=== PATIENT | female | born 1990 | race African-American/Black ===

== ENCOUNTER 2021-02-12 00:44 | Inpatient (IN) ==
[2021-02-12 06:59] LABS: Hematocrit 35 % (35-47); Hemoglobin 11.2 g/dL (12.0-16.0); Mean Corpuscular HGB Conc 33 g/dL (31-36); Mean Corpuscular Hemoglobin 27 pg (27-31); Mean Corpuscular Volume 82 fL (80-97); Mean Platelet Volume 9.4 fL (7.4-10.4); Platelet Count 209 10^3/uL (150-450); Red Blood Count 4.23 10^6 /uL (3.70-4.87); Red Cell Distribution Width 15 % (10-15); White Blood Count 11.8 10^3/uL (3.5-10.8)
[2021-02-12] MEDS ORDERED: ceFOXitin 2 GM PREMIX 50 ML IVPB ONE (07:00)
[2021-02-12 08:59] LABS: Urine Benzodiazepine Screen None Detected (None Detect); Urine Opiates Screen None Detected (None Detect)
[2021-02-12] MEDS: Lactated Ringers 1000 ml BAG 1,000 ML IV SCH ×2 (10:25→16:30)
[2021-02-12] MEDS ORDERED: Sodium Citrate/Citric Acid LIQ 15 ML UDC ONE (18:23)
[2021-02-12] MEDS ORDERED: Dibucaine 1% OINT 28.35 GM TUBE PR PRN (19:29)
[2021-02-12] MEDS ORDERED: Varicella Virus Vaccine Live 0.5 ML VIAL SUBCUT ONE (19:29)
[2021-02-12] MEDS ORDERED: Witch Hazel PAD JAR TOPICAL PRN (19:29)
[2021-02-12] MEDS ORDERED: Glycerin ADULT 2.4 gm SUPP PR PRN (19:29)
[2021-02-12] MEDS ORDERED: Oxytocin in LR 20 UNITS/1,000 ML BAG IVPB SCH (20:00)
[2021-02-12] MEDS ORDERED: Lactated Ringers 1000 ml BAG 1,000 ML IV SCH (20:00)
[2021-02-12 22:07] LABS: Urine Appearance Clear; Urine Bilirubin Negative (Negative); Urine Blood Negative (Negative); Urine Color Yellow; Urine Glucose Negative (Negative); Urine Ketones 1+ (Negative); Urine Nitrite Negative (Negative); Urine Protein Negative (Negative); Urine Specific Gravity 1.009 (1.002-1.030); Urine Urobilinogen Negative (Negative)
[2021-02-13] MEDS ORDERED: Ondansetron 4 mg VIAL 2 MG/ML 2 ml VIAL IV PRN (01:05)
[2021-02-13] MEDS ORDERED: Naloxone 0.4 mg VIAL 0.4 mg/ml 1 ml VIAL IV PRN (01:05)
[2021-02-13] MEDS ORDERED: DiMENhydriNATE IV 50 mg/ml 1 ml VIAL IV PUSH PRN (01:05)
[2021-02-13] MEDS ORDERED: oxyCODONE/Acetamin 5/325 mg TAB PO PRN (01:05)
[2021-02-13 07:26] LABS: ABS Lymphocytes 1.3 10^3/ul (1.0-4.8); ABS Monocytes 0.9 10^3/ul (0-0.8); ABS Neutrophils 19.8 10^3/ul (1.5-7.7); Eosinophil % 0.1 %; Hematocrit 29 % (35-47); Hemoglobin 9.5 g/dL (12.0-16.0); Lymphocyte % 5.8 %; Mean Corpuscular HGB Conc 33 g/dL (31-36); Mean Corpuscular Hemoglobin 27 pg (27-31); Mean Corpuscular Volume 82 fL (80-97); Mean Platelet Volume 9.2 fL (7.4-10.4); Platelet Count 185 10^3/uL (150-450); Red Blood Count 3.53 10^6 /uL (3.70-4.87); Red Cell Distribution Width 15 % (10-15); White Blood Count 22.1 10^3/uL (3.5-10.8)
[2021-02-14 15:34] VITALS: BP 89/52
== END 2021-02-14 15:30 | disposition home or self-care (01) | DRG 788 ==
LOC: MCHOB 05:57
PROVIDERS: ADMIT Obstetrics & Gynecology; ATTEND Obstetrics & Gynecology